=== PATIENT | male | born 1950 | race Caucasian/White ===

== ENCOUNTER 2022-03-01 07:34 | Emergency (ER) | payer MEDICARE, OTHER, SELFPAY ==
[2022-03-01 07:39] VITALS: BP 146/78; PULSE 73; RESP 15; TEMP 36.4; O2SAT 99; BMI 23.1
--- NOTE | 2022-03-01 07:59 | USCV_ITS ---
Gunner Jennings Age: 71 Gender: M : 1950 Exam Date: 03/01/2022 08:12 Ordering Phys: Neel Lee Technologist: Terrance Moulton [place] [facility] [facility] [place]: Back pain that radiates to abdomen HISTORY: Diameter (cm) AP x Transverse x Length Velocity (cm/s) Waveform Prox Aorta: 2.09 x 2.22 x 90.10 Mid Aorta: 1.51 x 1.72 x 100.80 Distal Aorta: 1.53 x 1.59 x 81.80 Right Iliac Prox: 0.89 x 0.93 x 152.50 Left Iliac Prox: 0.80 x 1.01 x 176.20 Stent Prox Landing x x Aneurysmal Sac Max x x Lt Lat Sac Dim Rt Lat Sac Dim Stent Dist Landing x x Right Iliac Stent x x Left Iliac Stent x x Right Renal Art Left Renal Art FINDINGS: CONCLUSIONS No evidence of abdominal aortic or bilateral iliac aneurysm. Obey Felix MD (Electronically Signed) Final Date: 01 March 2022 17:15 S
--- NOTE | 2022-03-01 07:59 | XRR_ITS ---
PROCEDURE INFORMATION: Exam: XR Lumbosacral Spine Exam date and time: 03/01/2022 8:08 AM Age: 71 years old Clinical indication: Low back pain; Prior surgery; Surgery date: 6+ months; Surgery type: Steel plate low back , RT hip TECHNIQUE: Imaging protocol: Radiologic exam of the lumbosacral spine. Views: 2 or 3 views. COMPARISON: No relevant prior studies available. FINDINGS: Bones/joints: Age-indeterminate compression fracture involving the superior endplate of L1 with up to 10% height loss and no bony retropulsion. No malalignment. Plate and screw fixation is seen at the level of S1. Additional screws project ventral to the L5-S1 disc space. Moderate facet hypertrophy at L4-L5 and L5-S1. Moderate degenerative disc disease at L5-S1. Mild degenerative disc disease throughout the remainder of the lumbar spine. Soft tissues: Unremarkable. XR/XR lumbar spine 2-3V* [id number] IMPRESSION: Age-indeterminate compression fracture involving the superior endplate of L1 with up to 10% height loss and no bony retropulsion.
--- NOTE | 2022-03-01 08:01 | XRR_ITS ---
PROCEDURE INFORMATION: Exam: XR Thoracic Spine Exam date and time: 03/01/2022 8:08 AM Age: 71 years old Clinical indication: Pain in thoracic spine; Additional info: Back pain TECHNIQUE: Imaging protocol: Radiologic exam of the thoracic spine. Views: 3 views. COMPARISON: No relevant prior studies available. FINDINGS: Bones/joints: No acute fracture or malalignment. Disc spaces are maintained. Soft tissues: Unremarkable. XR/XR thoracic spine 3V* [id number] IMPRESSION: No acute fracture or malalignment.
--- NOTE | 2022-03-01 08:02 | W.ED.BACK ---
HPI - Back Pain/Injury General: Chief Complaint: Back Pain/Injury Stated Complaint: Back Pain/rash on upper body Time Seen by Provider: 03/01/22 07:37 History of Present Illness: Patient is a 71-year-old male comes to the ED with back pain and rash. Patient has a history of some chronic pain due to multiple broken bones from trauma years ago. Approximately 3 weeks ago he started having back pain that radiates around into his abdomen bilaterally. Denies any cauda equina symptoms. Denies any recent injury or trauma to cause back pain. Patient lives in [place] and is here in [facility]. Associated symptoms: Deny abdominal pain, chills, dysuria, fatigue, fever(s), hematuria, nausea or vomiting Review of Systems Const: Denies: fever(s), chills or fatigue Eyes: Denies: change in vision or eye discomfort ENMT: Denies: throat pain, odynophagia, nasal discharge or nasal congestion Card: Denies: chest pain, palpitations, edema, swelling of feet/ankles, dyspnea on exertion or orthopnea Resp: Denies: dyspnea, productive cough or non-productive cough GI: Denies: abdominal pain, nausea, vomiting, diarrhea, constipation or hematochezia : Denies: flank pain, difficulty urinating, dysuria or hematuria Musc: Reports: back pain; Denies: neck pain or extremity swelling Skin/Breast: Reports: rash; Denies: new lesions Neuro: Denies: headache(s), numbness in extremities or weakness in extremities PFS ED PFSH: Medical History No pertinent family history Surgical History No pertinent past surgical history Physical Exam Const: COMMON NORMALS: patient oriented x3, healthy appearing and alert GENERAL APPEARANCE: cooperative HENMT: COMMON NORMALS: normocephalic HEAD & SCALP: normocephalic MOUTH: Normal oral and palatal mucosa present THROAT: posterior oropharynx normal and uvula midline Neck/C-Spine: COMMON NORMALS: supple GENERAL: Yes normal visual inspection Resp: COMMON NORMALS: normal respiratory effort, No retractions, No use of accessory muscles and clear to auscultation bilaterally AUSCULTATION: clear to auscultation bilaterally Cardio: COMMON NORMALS: regular rate, regular rhythm, S1 normal heart sound present, S2 normal heart sound present, No gallops present (Cardio), No clicks present (Cardio), No murmurs present (Cardio) and Peripheral pulses 2+ throughout RATE: regular rate RHYTHM: regular rhythm HEART SOUNDS: S1 normal heart sound present and S2 normal heart sound present PERIPHERAL PULSES: Peripheral pulses 2+ throughout GI: COMMON NORMALS: Normal to inspection, nondistended, normoactive bowel sounds present, Soft to palpation, non-tender and no masses PALPATION: Yes Soft to palpation : COMMON NORMALS: Yes no CVA tenderness BLADDER/KIDNEY EXAM: Yes no CVA tenderness Back/Pelvis: COMMON NORMALS: no CVA tenderness Extremity: COMMON NORMALS: normal to inspection Neuro: COMMON NORMALS: patient oriented x3 SENSORIUM/ORIENTATION: Yes alert GAIT: Yes Normal gait present Skin: NARRATIVE SKIN EXAM: Patient has hives type rash on abdomen. GENERAL SKIN EXAM: dry skin Course Vital Signs: Vital signs: Vital Signs Temperature 97.6 F 03/01/22 08:31 Pulse Rate 78 03/01/22 10:12 Respiratory Rate 18 03/01/22 08:31 Blood Pressure 146/64 03/01/22 10:12 Pulse Oximetry 98 03/01/22 10:12 Oxygen Delivery Me thod 03/01/22 08:31 MDM - Back Pain/Injury Medical Decision Making Patient is 71-year-old male who comes to the ED with back pain and rash. Denies any injury or trauma to cause acute back pain. Patient is on [place] for pain management. Patient appears nontoxic in no acute distress or pain. Denies cauda equina symptoms. Vitals are stable. Patient has hives type rash on abdomen and exam is benign. X-ray of thoracic spine showed no acute fractures or findings. Lumbar spine showed an age indeterminate compression fracture of superior endplate of L1. Patient was given a dose of muscle relaxer, morphine and steroid while here in the ED. Patient was put in a TLSO brace here in the ED. He was diagnosed with hives type rash and lumbar vertebrae compression fracture. He was told to contact orthospine specialist when he gets back to [place]. He was sent home with a prescription for a muscle relaxer and a Medrol Dosepak. Return to ED precautions given. Patient understood and agreed with plan. Labs I reviewed the patient's lab results. Radiology Impressions Lumbar Spine X-Ray 03/01/22 07:59 IMPRESSION: Age-indeterminate compression fracture involving the superior endplate of L1 with up to 10% height loss and no bony retropulsion. Thoracic Spine X-Ray 03/01/22 08:01 IMPRESSION: No acute fracture or malalignment. Laboratory Results Urine Color Yellow (Yellow) 03/01/22 08:30 Urine Appearance Clear (CLEAR) 03/01/22 08:30 Urine pH 5 (5-7) 03/01/22 08:30 Ur Specific [place] 1.020 (1.005-1.030) 03/01/22 08:30 Urine Protein Neg (Negative) 03/01/22 08:30 Urine Glucose (UA) Norm (Normal) 03/01/22 08:30 Urine Ketones Negative (Negative) 03/01/22 08:30 Urine Blood Neg (Negative) 03/01/22 08:30 Urine Nitrate Negative (Negative) 03/01/22 08:30 Urine Bilirubin Neg (Negative) 03/01/22 08:30 Urine Urobilinogen Norm mg/dL (Negative) 03/01/22 08:30 Ur Leukocyte Esterase Negative (Negative) 03/01/22 08:30 Discharge Plan Discharge Patient Disposition: Home Clinical Impression: Compression fracture of thoracolumbar vertebra, Rash Condition: Stable Prescriptions: New methocarbamol 750 mg tablet 750 mg PO Q8H PRN (Reason: Back muscle spasms and pain) Qty: 20 0RF methylprednisolone 4 mg tablets,dose pack See Rx Instructions .ROUTE .COMPLEX Qty: 21 0RF Rx Instructions: orally per package directions No Action carisoprodol 350 mg tablet 350 mg PO TID PRN (Reason: Muscle Pain) hydrocodone-acetaminophen 10-325 mg tablet 1 tab PO Q4H PRN (Reason: Pain) Discharge Orders: Discharge ED (Routine); Ordered 03/01/22 Ordered By: Neel Lee Discharge Diet: Regular Discharge Activity: Limit activity as instructed Patient Instructions: Fractures - Compression Activity Restrictions/Additional Instructions: Follow-up with medical provider as directed. You should contact an orthospine specialist when you get back home to [place] for follow-up on lumbar spine compression fracture. Continue taking all home medications as previously prescribed. I am Sending you home with a prescription for muscle relaxer methocarbamol and Medrol Dosepak which is a steroid that will help with the rash. Return to the ER or your medical provider if condition worsens. Please read and understand discharge instructions. Thank you for choosing [facility] for your healthcare needs today. Please realize this is an emergency room and that we are providing you with a medical screening exam and this may not be complete and all inclusive of all the testing and or work up that you may need to determine your ailment or severity of your illness. It is very important that you follow up as instructed or that you return to the Emergency Department should you have concerns or if your condition changes or worsens in any way. Coding Level of Care Code ED [employer] Operator Helper for Leann Zaldivar Exam Comprehensive
[2022-03-01 08:12] VITALS: RESP 18
[2022-03-01] MEDS: morphine 4 mg/mL SDV 1 mL IM (08:12)
[2022-03-01] MEDS: dexamethasone 10 mg/mL INJ IM (08:25)
[2022-03-01] MEDS: orphenadrine 30 mg/mL Inj 2 mL 60 MG IM (08:26)
[2022-03-01 08:31] VITALS: BP 146/78; PULSE 73; RESP 18; TEMP 36.4; O2SAT 99
[2022-03-01 08:44] LABS: Add Urine Microscopic? NO; Charge for UA Resulting for Rev
[2022-03-01 09:04] LABS: Bilirubin Urine Neg (Negative); Blood Urine Neg (Negative); Glucose Urine UA Norm (Normal); Ketones Urine Negative (Negative); Leukocyte Esterase Urine Negative (Negative); Nitrate Urine Negative (Negative); Protein Urine Neg (Negative); Urine Appearance Clear (CLEAR); Urine Color Yellow (Yellow); Urobilinogen Urine Norm (Negative); pH Urine 5 (5-7)
[2022-03-01 10:12] VITALS: BP 146/64; PULSE 78; O2SAT 98
== END 2022-03-01 10:14 | disposition home or self-care (01) ==
PROVIDERS: Emergency Provider Physician Assistant
DX: R21 Rash and other nonspecific skin eruption (principal); S32.010A Wedge compression fracture of first lumbar vertebra, initial encounter for closed fracture; X58.XXXA Exposure to other specified factors, initial encounter
CPT/HCPCS: 72072; 72100; 81003; 93978; 96372; 97760; 99285; J1100; J2270; J2360; L0456